=== PATIENT | female | born 1990 | race African-American/Black ===

== ENCOUNTER 2025-02-25 10:27 | Emergency (ER) | payer MEDICAID ==
[~2025-02-25] VITALS: Ht 170.2 cm; Wt 113.0 kg
[2025-02-25 10:33] VITALS: O2SAT 98
[2025-02-25] MEDS ORDERED: LIDO-53 TP (10:55)
[2025-02-25] MEDS: ACETAMINOPHEN 500MG TABLET PO ONE (11:05)
[2025-02-25 12:38] VITALS: PULSE 99; TEMP 36.7; O2SAT 98
[2025-02-25] MEDS ORDERED: ACET-2708 MT (12:47)
[2025-02-25] MEDS ORDERED: LIDOCAINE 5% PATCH TOP SCH (13:00)
[2025-02-25 13:06] VITALS: BP 188/106; RESP 18
[2025-02-25] MEDS: LIDOCAINE 5% PATCH TOP SCH (13:06)
== END 2025-02-25 13:07 | disposition home or self-care (01) ==
LOC: ER 10:27
DX: M25.512 Pain in left shoulder (principal); E11.9 Type 2 diabetes mellitus without complications; I10 Essential (primary) hypertension
CPT/HCPCS: 73030; 99283; A4565

== ENCOUNTER 2025-04-03 08:36 | Emergency (ER) | payer SELFPAY ==
[~2025-04-03] VITALS: Ht 170.2 cm; Wt 111.0 kg
[~2025-04-03 08:36] MED LIST: ACET-2708 MT; ASPI-1497 MT; CARV25TA47 MT; HYDR50TA40 MT; LISI20TA31 MT; METF-1149 MT
[2025-04-03 08:40] VITALS: O2SAT 99
[2025-04-03] MEDS: IBUPROFEN 600MG TABLET PO ONE (09:53)
[2025-04-03] MEDS ORDERED: APIX5TAB MT (11:14)
[2025-04-03 11:47] VITALS: BP 187/123; PULSE 100; RESP 17; TEMP 37.1; O2SAT 100
== END 2025-04-03 11:48 | disposition home or self-care (01) ==
LOC: ER 08:36
DX: I82.621 Acute embolism and thrombosis of deep veins of right upper extremity (principal); I10 Essential (primary) hypertension; E11.9 Type 2 diabetes mellitus without complications; Z79.01 Long term (current) use of anticoagulants; Z79.82 Long term (current) use of aspirin; Z79.84 Long term (current) use of oral hypoglycemic drugs; Z79.899 Other long term (current) drug therapy
CPT/HCPCS: 81025; 93971; 99284

== ENCOUNTER 2025-04-06 14:20 | Emergency (ER) | payer SELFPAY ==
[~2025-04-06] VITALS: Ht 170.2 cm; Wt 111.0 kg
[~2025-04-06 14:20] MED LIST changes: +APIX5TAB MT
[2025-04-06 14:30] VITALS: O2SAT 100
[2025-04-06] MEDS: CLONIDINE 0.1MG TABLET PO ONE (15:42)
[2025-04-06 16:03] LABS: HEMATOCRIT. 32.3 % (36.0-48.0); HEMOGLOBIN. 9.0 g/dL (12.0-16.0); INR 1.0; MEAN PLATELET VOLUME 9.1 fl (7.4-10.4); PLATELET 412 x1000/uL (130-400); RED BLOOD CELL COUNT 5.44 mill/uL (4.2-5.4); RED CELL DISTRIBUTION WIDTH 23.9 % (11.6-14.6)
[2025-04-06 16:05] LABS: CREATININE 0.7 mg/dL (0.6-1.0)
[2025-04-06 16:06] LABS: UREA NITROGEN BLOOD 6 mg/dL (9-23)
[2025-04-06 16:07] LABS: ASPARTATE AMINOTRANSFERASE 13 IU/L (<34)
[2025-04-06 16:08] LABS: BILIRUBIN DIRECT < 0.1 mg/dL (<=3.0); BILIRUBIN TOTAL 0.2 mg/dL (0.1-1.0); PROTEIN TOTAL 6.9 g/dL (6.0-8.3)
[2025-04-06 16:38] LABS: HCG SCREEN NEGATIVE
[2025-04-06 16:46] LABS: TROPONIN I HIGH SENSITIVITY 168 ng/L (3.0-34)
[2025-04-06 17:30] LABS: EOSINOPHILS % MANUAL 7.0 % (0.0-5.0); LYMPHOCYTES % MANUAL 24.0 % (20.0-60.0); MONOCYTES % MANUAL 12.0 % (2.0-8.0); NEUTROPHILS % MANUAL 57.0 % (45.0-75.0); PLATELET ESTIMATE SLIGHTLY INCREASED
[2025-04-06 17:55] LABS: TROPONIN I HIGH SENSITIVITY 163 ng/L (3.0-34)
[2025-04-06 19:07] VITALS: BP 180/95; PULSE 85; RESP 16; O2SAT 100
== END 2025-04-06 19:14 | disposition home or self-care (01) ==
LOC: ER 14:20
DX: R07.9 Chest pain, unspecified (principal); I10 Essential (primary) hypertension; R79.89 Other specified abnormal findings of blood chemistry; Z79.82 Long term (current) use of aspirin; Z79.01 Long term (current) use of anticoagulants; Z79.84 Long term (current) use of oral hypoglycemic drugs; Z86.718 Personal history of other venous thrombosis and embolism; Z79.899 Other long term (current) drug therapy
CPT/HCPCS: 36415; 71045; 80048; 80076; 84484; 84703; 85025; 93005; 99285